=== PATIENT | female | born 1950 | race Caucasian/White ===

== ENCOUNTER 2018-07-26 13:56 | Outpatient (CLI) | payer MEDICARE | END 2018-07-26 13:57 | disposition home or self-care (01) | LOC: NS 13:56 | PROVIDERS: ATTEND Family Medicine | DX: Z71.3 Dietary counseling and surveillance (principal); E11.65 Type 2 diabetes mellitus with hyperglycemia | CPT/HCPCS: 97802 ==

== ENCOUNTER 2019-07-15 04:28 | Outpatient (CLI) | payer MEDICARE, OTHER | END 2019-07-15 04:29 | disposition critical access hospital (66) | LOC: EMS 04:28 | PROVIDERS: ATTEND Surgery | DX: R41.82 Altered mental status, unspecified (principal) | CPT/HCPCS: A0425; A0429 ==

== ENCOUNTER 2019-07-15 04:39 | Emergency (ER) | payer MEDICARE, OTHER ==
--- NOTE | 2019-07-15 04:53 | ED Physician Documentation ---
PD HPI FOCAL NEURO - Stated complaint Stated Complaint: LEFT SIDE DROOP - History obtained from History obtained from: Patient, Family, EMS - History of Present Illness Timing - onset: Enter time (414) Timing - duration: Minutes Timing - details: Abrupt onset, Still present Time of symptom onset unknown: Time of onset unknown (last normal was 2344) Severity of deficit: Severe Weakness: Face, Arm, Hand, Leg, Foot, Right Numbness: Face Associated symptoms: Fall. No: Headache, Nausea / vomiting, Seizure, Syncope, Head injury, Chest pain, Neck pain, Back pain, Fever Contributing factors: positive: Atrial fibrillation. negative: Anticoagulated Baseline status: positive: A&OX3, ambulatory, indep Similar symptoms before: Has not had sx before Recently seen: Not recently seen - Additional information Additional information: 68-year-old diabetic female with morbid obesity was found next to her bed when she called out her 's name and he noted her to have right-sided deficit. He called 911 and ambulance transported the patient here she is not able to give us further history. She was last seen normal at 2344. There is no obvious trauma. Review of Systems Unable to obtain: [facility] PD PAST MEDICAL HISTORY - Past Medical History Cardiovascular: Congestive heart failure, Hypertension, High cholesterol, Murmur Respiratory: Asthma, COPD, Shortness of breath, Sleep apnea, CPAP use Endocrine/Autoimmune: Type 2 diabetes, HyPOthyroidism GI: None : Renal insuffiency HEENT: None Psych: Claustrophobia Musculoskeletal: Osteoarthritis Derm: None - Past Surgical History Past Surgical History: Yes /CERTIFIED MEDICAL DOSIMETRIST: Endometrial ablation HEENT: Tonsil/Adenoidectomy - Present Medications Home Medications: Ambulatory Orders Medication Instructions Recorded Confirmed Furosemide [Lasix] 40 mg PO DAILY 07/29/12 07/15/19 Levothyroxine Sodium [Levothroid] 50 mcg PO DAILY 07/29/12 07/15/19 Potassium Chloride 10 meq PO DAILY 07/29/12 07/15/19 cloNIDine [Catapres] 0.1 mg PO BID 07/29/12 07/15/19 Cholecalciferol (Vitamin D3) 5,000 unit PO DAILY 09/03/12 07/15/19 [Vitamin D-3] Fish Oil/Dha/Epa [Fish Oil 1,200 1 each PO DAILY 09/03/12 07/15/19 mg Fish Oil] Metoprolol Tartrate [Lopressor] 100 mg PO DAILY 09/03/12 07/15/19 Multivitamin [Multivitamins] 1 each PO DAILY 09/03/12 07/15/19 Lisinopril 10 mg PO DAILY 09/05/12 07/15/19 Glipizide 5 mg PO BID 06/13/18 07/15/19 Insulin Glargine,Hum.rec.anlog 26 unit SUBQ DAILY PM 06/13/18 07/15/19 [Basaglar Kwikpen U-100] Ubidecarenone [Co Q-10] 10 mg PO DAILY 06/13/18 07/15/19 Fenofibrate Nanocrystallized 145 mg DAILY 07/15/19 07/15/19 [Fenofibrate] - Allergies Allergies/Adverse Reactions: Allergies Allergy/AdvReac Type Severity Reaction Status Date / Time codeine [Codeine] Allergy Nausea Verified 07/15/19 05:00 metformin AdvReac Unknown Uncoded 07/15/19 05:00 - Social History Does the pt smoke?: No Smoking Status: Never smoker Does the pt drink ETOH?: Yes Does the pt have substance abuse?: No - Immunizations Immunizations are current?: Yes - POLST Patient has POLST: No PD ED PE NORMAL - Vitals Vital signs reviewed: Yes (Hypertensive and bradycardic) - General General: No acute distress, Other (morbidly obese 68 y/o female with a blank stare is interactive with severe dysarthria and mild right facial droop) - HEENT HEENT: Atraumatic, PERRL, EOMI - Neck Neck: Supple, no meningeal sign, No bony TTP - Cardiac Cardiac: Other (Irregularly irregular rate and rhythm without murmur) - Respiratory Respiratory: Other (Diminished breath sounds with end inspiratory rhonchi in the right base) - Abdomen Abdomen: Soft, Non tender, Other (Morbid obesity nontender) - Back Back: No CVA TTP, No spinal TTP - Derm Derm: Normal color, Warm and dry, No rash - Extremities Extremities: No deformity, Other (Trace edema bilaterally) - Neuro Neuro: Other (See NIH score) Eye Opening: Spontaneous Motor: Obeys Commands Verbal: Confused GCS Score: 14 - Psych Psych: Normal mood, Normal affect NIHSS - Time Time: 04:50 - Level of Consciousness Level of consciousness: (1) Not alert, but arousable by minor stimulation to obey, or answer LOC Questions: (1) Answers one Q correctly LOC Commands: (0) Performs both correctly - Gaze Best Gaze: (0) Normal - Visual Visual: (0) No loss - Facial Palsy Facial Palsy: (2) Partial paralysis - Motor Arms (both separate) Motor Arm (right): (4) No movement Motor Arm (left): (0) No drift - Motor Legs (both separate) Motor Leg (right): (3) No effort against gravity Motor Leg (left): (1) Drift - Limb Ataxia Limb Ataxia: (2) Present in 2 limbs - Sensory Sensory: (1) Wgpn-od-shxkuqol loss - Best Language Best Language: (1) kgxo-xr-ochphbu - Dysarthria Dysarthria: (1) Mymw-gd-dspfrzeo dysarthria - Extinction and Inattention (formally neg Extinction and inattention: (1) Visual,tactile,auditory,spatial, or personal inattention - Total Score/Results Total Score/Result: 18 Results - Vitals Vitals: Vital Signs - 24 hr 07/15/19 07/15/19 07/15/19 04:49 05:22 05:56 Temperature 37 C Heart Rate 57 L 52 L 53 L Respiratory 20 17 15 Rate Blood Pressure 154/67 H 156/80 H 100/41 L O2 Saturation 92 96 93 07/15/19 07:15 Temperature Heart Rate 54 L Respiratory 20 Rate Blood Pressure 119/45 L O2 Saturation 99 Oxygen O2 Source Nasal cannula Oxygen Flow Rate 2 - EKG (time done) 0450 Rate: Rate (enter#) (58) Rhythm: Atrial fibrillation Intervals: RBBB Compare to prior EKG: Changed from prior EKG ([facility] 10-02-2012 afib has developed) Computer interpretation: Agree with computer - Labs Labs: Laboratory Tests 07/15/19 07/15/19 07/15/19 04:55 04:55 05:09 WBC 11.6 H RBC 5.08 Hgb 14.9 Hct 48.4 H MCV 95.3 MCH 29.3 MCHC 30.8 L RDW 15.5 H Plt Count 238 MPV 11.3 H Neut # (Auto) 6.8 H Lymph # (Auto) 3.7 H [place] # (Auto) 0.7 Eos # (Auto) 0.2 Baso # (Auto) 0.1 Absolute Nucleated RBC 0.00 Nucleated RBC % 0.0 Sodium Potassium Chloride Carbon Dioxide Anion Gap BUN Creatinine Estimated GFR (MDRD) Glucose Lactic Acid Calcium Total Bilirubin AST ALT Alkaline Phosphatase B-Natriuretic Peptide 125 H Total Protein Albumin Globulin Albumin/Globulin Ratio Lipase Urine Color YELLOW Urine Clarity SL. CLOUDY Urine pH 5.0 Ur Specific [place] 1.020 Urine Protein TRACE Urine Glucose (UA) 250 H Urine Ketones NEGATIVE Urine Occult Blood LARGE H Urine Nitrite POSITIVE H Urine Bilirubin NEGATIVE Urine Urobilinogen 0.2 (NORMAL) Ur Leukocyte Esterase SMALL H Urine RBC TNTC H Urine WBC 11-25 H Ur Squamous Epith Cells FEW Squamous Urine Bacteria Moderate H Ur Microscopic Review INDICATED Urine Culture Comments INDICATED 07/15/19 07/15/19 05:30 05:30 WBC RBC Hgb Hct MCV MCH MCHC RDW Plt Count MPV Neut # (Auto) Lymph # (Auto) [place] # (Auto) Eos # (Auto) Baso # (Auto) Absolute Nucleated RBC Nucleated RBC % Sodium 136 Potassium 4.5 Chloride 96 L Carbon Dioxide 30 Anion Gap 10.0 BUN 63 H Creatinine 1.8 H Estimated GFR (MDRD) 28 L Glucose 243 H Lactic Acid 1.2 Calcium 10.1 Total Bilirubin 0.7 AST 15 ALT 14 Alkaline Phosphatase 49 B-Natriuretic Peptide Total Protein 7.6 Albumin 4.1 Globulin 3.5 Albumin/Globulin Ratio 1.2 Lipase 39 Urine Color Urine Clarity Urine pH Ur Specific [place] Urine Protein Urine Glucose (UA) Urine Ketones Urine Occult Blood Urine Nitrite Urine Bilirubin Urine Urobilinogen Ur Leukocyte Esterase Urine RBC Urine WBC Ur Squamous Epith Cells Urine Bacteria Ur Microscopic Review Urine Culture Comments - Rads (name of study) CTA head Radiology: Prelim report reviewed (Impression: 1. Subtle area of decreased gonzales-white matter differentiation in the inferior left frontal gyrus, suspicious for an acute evolving left MCA infarct. Aspect score is 10 on the right and 9 on the left. 2 Hyperdense left MCA sign. 3 Suspect 1 cm meningioma adjacent to the left petrous apex 4 large filling defect is seen beginning in the carotid bifurcation causing complete occlusion of the left ICA and left M1 segment suspicious for an acute thromboembolism . There is also high-grade stenosis of the origin of left ECA. 5 okay severe left and moderate right origin stenosis of the bilateral vertebral arteries due to calcified plaque) chest Radiology: Prelim report reviewed (Impression: 1. Left basilar opacity with possible component of pleural effusion. Atelectasis, infiltrate or other process not excluded. 2 Suspect mild pulmonary vascular congestion. 3 Stable cardiomegaly.), EMP read indepedently, See rad report Procedures - IVC sono (time) 6636 Bedside IVC sono: IVC measures (cm) (2.46), IVC collapsed c insp (cm) (2.46), High CVP PD MEDICAL DECISION MAKING - ED course Complexity details: reviewed old records, reviewed results, re-evaluated patient, considered differential, d/w patient, d/w family ED course: 68-year-old female with a devastating large vessel occlusion with new onset atrial fibrillation. Dr. Morenita Starkey is consulted in the case and she will accept the patient in transfer to [facility] neuroscience for large vessel occlusion.Dr. Mitchell calls us back as accepting. Departure - Departure Disposition: 02 Transfer Acute Care Hosp Clinical Impression: Cerebrovascular accident (CVA) Qualifiers: CVA mechanism: thrombosis Precerebral and cerebral artery: carotid artery Laterality of affected vessel: left Qualified Code(s): I63.032 - Cerebral infarction due to thrombosis of left carotid artery Condition: Critical Discharge Date/Time: 07/15/19 07:33
[2019-07-15 05:15] LABS: BASOPHILS # (AUTO) 0.1 10^3/uL (0.0-0.1); BASOPHILS % (AUTO) 0.8 %; EOSINOPHILS # (AUTO) 0.2 10^3/uL (0.0-0.7); EOSINOPHILS % (AUTO) 1.8 %; HGB - HEMOGLOBIN 14.9 g/dL (12.0-16.0); LYMPHOCYTES # (AUTO) 3.7 10^3/uL (1.5-3.5); LYMPHOCYTES % (AUTO) 31.7 %; MEAN CORPUSCULAR HEMOGLOBIN 29.3 pg (27.0-31.0); MEAN CORPUSCULAR HGB CONC 30.8 g/dL (32.0-36.0); MEAN CORPUSCULAR VOLUME 95.3 fL (81.0-99.0); MEAN PLATELET VOLUME 11.3 fL (7.9-10.8); MONOCYTES # (AUTO) 0.7 10^3/uL (0.0-1.0); MONOCYTES % (AUTO) 6.1 %; NEUTROPHILS # (AUTO) 6.8 10^3/uL (1.5-6.6); NEUTROPHILS % (AUTO) 59.1 %; PLT - PLATELET COUNT 238 10^3/uL (130-450); RED BLOOD COUNT 5.08 10^6/uL (4.20-5.40); RED CELL DISTRIBUTION WIDTH 15.5 % (12.0-15.0); WHITE BLOOD COUNT 11.6 x10^3/uL (4.8-10.8)
[2019-07-15 05:31] LABS: BILIRUBIN,URINE NEGATIVE (NEGATIVE); GLUCOSE, URINE (UA) 250 mg/dL (NEGATIVE); KETONES,URINE (UA) NEGATIVE (NEGATIVE); LEUKOCYTE ESTERASE, URINE SMALL (NEGATIVE); NITRITE,URINE POSITIVE (NEGATIVE); OCCULT BLOOD,URINE LARGE (NEGATIVE); PROTEIN,URINE TRACE mg/dL (NEGATIVE); UROBILINOGEN,URINE 0.2 (NORMAL) E.U./dL (NORMAL)
[2019-07-15 05:35] LABS: CLARITY,URINE SL. CLOUDY (CLEAR)
[2019-07-15] MEDS ORDERED: IOVERSOL 320 100 ML VIAL IVP ONE ×2 (05:49→05:54)
[2019-07-15 05:50] LABS: BACTERIA,URINE Moderate /HPF (None Seen); RBC,URINE TNTC /HPF (0-5); SQUAMOUS EPITHELIAL CELL,UR FEW Squamous (<= Few)
[2019-07-15 05:55] LABS: ALBUMIN 4.1 g/dL (3.2-5.5); ALBUMIN/GLOBULIN RATIO 1.2 (1.0-2.2); BILIRUBIN,TOTAL 0.7 mg/dL (0.2-1.0); CALCIUM 10.1 mg/dL (8.5-10.3); CREATININE 1.8 mg/dL (0.4-1.0); TOTAL PROTEIN 7.6 g/dL (6.7-8.2)
--- NOTE | 2019-07-15 06:04 | XRAY Report ---
Reason: R base rhonchi hypoxia Procedure Date: 07/15/2019 Accession Number: [id number] / [id number] Procedure: XR - Chest 1 View X-Ray CPT Code: 40061 Final Report FULL RESULT: EXAM: CHEST RADIOGRAPHY EXAM DATE: 07/15/2019 05:47 AM. CLINICAL HISTORY: R base rhonchi hypoxia. COMPARISON: CHEST 2 VIEW PA/LAT 10/02/2012 3:49 PM. TECHNIQUE: 1 view. FINDINGS: Lungs/Pleura: Left basilar opacity with possible component of pleural effusion. Mild pulmonary vascular congestion suspected. No pneumothorax. Mediastinum: Enlarged cardiac silhouette, stable. Other: Degenerative changes and scoliosis of thoracic spine. IMPRESSION: 1. Left basilar opacity with possible component of pleural effusion. Atelectasis, infiltrate or other process not excluded. 2. Suspect mild pulmonary vascular congestion. 3. Stable cardiomegaly. RADIA
--- NOTE | 2019-07-15 06:13 | CT Report ---
Reason: L sided facial droop, L neck pain Procedure Date: 07/15/2019 Accession Number: [id number] / [id number] Procedure: CT - ANGIO NECK W CPT Code: Final Report FULL RESULT: EXAM: CT ANGIOGRAM HEAD AND NECK CT SCAN HEAD WITHOUT AND WITH CONTRAST EXAM DATE: 07/15/2019 05:20 AM CLINICAL HISTORY: Right-sided facial droop. COMPARISON: ANGIO NECK W 07/15/2019 5:00 AM. TECHNIQUE: Routine axial helical CTA imaging was performed from the aortic arch through the [place]. Routine axial CT imaging of the head was performed prior to and following contrast administration. Reconstructions: Routine multiplanar 3D MIP reconstructions. IV contrast: 100 mL Optiray 320. NASCET Criteria are used for stenosis measurements. In accordance with CT protocol optimization, one or more of the following dose reduction techniques were utilized for this exam: automated exposure control, adjustment of mA and/or KV based on patient size, or use of iterative reconstructive technique. FINDINGS: CT SCAN HEAD: Parenchyma: A subtle area of decreased gonzales-white matter differentiation is noted in the left inferior frontal gyrus (image 22, series 20), suspicious for an acute evolving left MCA territory infarct. No acute parenchymal hemorrhage is seen. A 1 cm enhancing mass adjacent to the left petrous apex (image 22, series 25), most likely represents a meningioma. Extra-axial Spaces: Hyperdensity in the left Sylvian fissure is suspicious for a hyperdense MCA sign. No subdural or epidural collections identified. Ventricles: There is mild generalized cerebral volume loss, in keeping with the patient's age. Sinuses and Orbits: Imaged paranasal sinuses, orbits, and mastoids show no significant abnormality. Bones: No evidence of fracture or calvarial defect. CT ANGIOGRAM EXTRACRANIAL CIRCULATION: Mild calcified plaque is noted at the aortic arch. No high-grade stenosis of the great vessel origins is seen. Right Carotid: The common, internal, and external carotid arteries are patent. Moderate calcified plaque is present at the carotid bifurcation but no hemodynamically significant stenosis is seen. The carotid artery takes a retropharyngeal course. Left Carotid: The proximal and mid common carotid artery are patent. There is extensive filling defect at the carotid bifurcation causing complete occlusion of the extracranial ICA and high-grade stenosis of the ECA origin, suspicious for a large intraluminal clot. Vertebrals: Calcified plaque is present at the bilateral vertebral artery origins resulting in stenosis measuring at least 50% on the right and measuring approximately 70% on the left. The right vertebral artery is slightly dominant. No hemodynamically significant stenosis is seen in their remaining cervical courses. CT ANGIOGRAM INTRACRANIAL CIRCULATION: The right ICA is patent with calcified plaque but no high-grade stenosis. The left ICA is completely occluded below the skull base and extending into the intracranial segment. There is complete occlusion of the left M1 segment. The left M2 segments are decreased in caliber and contrast opacification. The bilateral A1 and A2 segments are patent. The right M1 and M2 segments are also patent. A normal caliber anterior communicating artery is present. In the posterior circulation, the bilateral V4 segments are patent with right-sided dominance. There is a left AICA/PICA variant. The right PICA is well-demonstrated. The basilar artery is widely patent throughout its course to the terminus. There is normal contrast opacification in the superior cerebellar and posterior cerebral arteries. Posterior communicating arteries are not seen. The dural venous sinuses are patent. Other: The visualized upper lungs are clear. The airway is patent. Moderate to severe degenerative changes are present throughout the cervical spine. No acute abnormality is seen in the remaining soft tissues of the neck. IMPRESSION: 1. Subtle area of decreased gonzales-white matter differentiation in the inferior left frontal gyrus, suspicious for an acute evolving left MCA infarct. ASPECTS score is 10 on the right and 9 on the left. 2. Hyperdense left MCA sign. 3. Suspect a 1 cm meningioma adjacent to the left petrous apex. 4. Large filling defect is seen beginning at the carotid bifurcation causing complete occlusion of the left ICA and left M1 segment, suspicious for acute thromboembolism. There is also high-grade stenosis of the origin of the left ECA. 5. Severe left and moderate right origin stenosis of the bilateral vertebral arteries due to calcified plaque. RADIA The call report notification system was initiated by Dr. Mikki Banuelos at 05:59 AM on 07/15/2019. The above critical result findings were discussed with Dr. Nina by Dr. Mikki Banuelos at 06:02 AM on 07/15/2019.
[2019-07-15 07:15] VITALS: BP 119/45
== END 2019-07-15 07:33 | disposition short-term general hospital (02) ==
LOC: EDUNIT# → ED 04:39
DX: I63.032 Cerebral infarction due to thrombosis of left carotid artery (principal); I12.9 Hypertensive chronic kidney disease with stage 1 through stage 4 chronic kidney disease, or unspecified chronic kidney disease; E11.22 Type 2 diabetes mellitus with diabetic chronic kidney disease; N18.9 Chronic kidney disease, unspecified; Z79.4 Long term (current) use of insulin; I48.91 Unspecified atrial fibrillation
CPT/HCPCS: 36415; 51701; 70496; 70498; 71045; 80053; 81001; 83605; 83690; 83880; 85025; 87077; 87086; 87181; 93005; 99285; Q9967; U0004; 81003; 81599